=== PATIENT | male | born 1965 | race Caucasian/White ===

== ENCOUNTER → 2018-06-16 10:48 | Outpatient (POV) | payer SELFPAY | PROVIDERS: Visit Provider Dermatology | DX: Z00.00 Encounter for general adult medical examination without abnormal findings (principal) ==

== ENCOUNTER → 2020-03-30 09:04 | Outpatient (CLI) | payer OTHER, SELFPAY ==
--- NOTE | 2020-03-30 | CA_ITS ---
APPROVED REPORT Exam: Pharmacologic Technologist: Triny Jarvis, Ht: 6 ft 0 in Wt: 158 lbs BSA: 1.93 m2 HR: 93 bpm BP: 137/82 mmHg Rhythm: NSR Indications: Chest pain Stress Test Details Test: Exercise stress testing was performed using a Carmelo protocol. HR Resting HR: 100 bpm Max Heart Rate (APMHR): 164 bpm Max HR Achieved: 181 bpm Target HR (85% APMHR): 139 bpm % of APMHR: 110 Recovery HR: 103 bpm BP Resting BP: 137/82 mmHg Max BP: 174/84 mmHg ECG Clinical Reason for Termination: Target HR Achieved Exercise duration: 07:44 min Highest Stage Achieved: Exercise capacity: 10.1 METs Stress ECG Conclusion Max HR - 171 ; % of PM - 104; Max B/P -174/85 ; METs: 10.1 ; tst stopped due to SOA and leg fatigue. No chest pain Moderately frequent PAC's, Occ. PVC and rare V. couplet. Allowing for motion artifact the ST response to exercise is normal. Normal GXT. Rest and stress echo images reported separately. Electronically signed by : Olegario Flores, 03/30/2020 15:58:14
--- NOTE | 2020-03-30 09:08 | CA_ITS ---
APPROVED REPORT EXAM: Stress Echo Rouge Sifter: Elizabeth Agustin RVT Ht: 6 ft 0 in Wt: 158lbs BSA: 1.93 BP: 124/80 mmHg Indications: SOA,CP,SMOKER,HTN,ABN EKG Conclusion 1. Patient exercised on Carmelo protocol and achieved 10.1 mets of workload on treadmill, there was no exercise-induced chest discomfort, EKG was negative for ischemia. 2. Resting echocardiogram showed normal left ventricular size and function with ejection fraction of 55% with no regional wall motion abnormality. 3. With exercise there is increase in contractility of all the segments of the myocardium with hyperdynamic left ventricular systolic response, no obvious regional wall motion abnormality with exercise to suggest underlying ischemic heart disease 4. Normal exercise stress echo. Electronically signed by : Olegario Flores, 03/30/2020 16:00:10
--- NOTE | 2020-03-30 09:51 | XR_ITS ---
PROCEDURE: XR CHEST 2V CLINICAL HISTORY: dyspnea Smoker COMPARISON: CR CXR2V XR chest 2V from 07/20/2017 FINDINGS: The cardiomediastinal silhouette and pulmonary vascularity are within normal limits. COPD with old granulomatous disease. Scattered calcified granulomas are present with hyperinflation. No lobar consolidation or collapse. There is mild biapical pleural thickening. This appears slightly greater in the left apex which could be related to slight difference in patient positioning with scarring. Follow-up may confirm stability. There is hypoplastic left 3rd rib versus postsurgical change. This is stable. IMPRESSION: COPD with old granulomatous disease. No acute finding Biapical pleural thickening which appears slightly greater in the left apex possibly due to positioning and may be confirmed with follow-up Dictated by: Juan Pickett MD 03/30/2020 10:41 Juan Pickett MD in [place] 03/30/2020 10:41
== END ==
PROVIDERS: Visit Provider Nurse Practitioner Family
DX: R06.02 Shortness of breath (principal); R94.31 Abnormal electrocardiogram [ECG] [EKG]; I10 Essential (primary) hypertension; Z72.0 Tobacco use
CPT/HCPCS: 71046; 93017; 93350